=== PATIENT | female | born 1980 | race Caucasian/White ===

== ENCOUNTER → 2018-11-22 | Outpatient (CLI) | payer BC, OTHER ==
--- NOTE | 2018-11-22 17:55 | REP ---
Left hand series: Four views. History: Contusion. Findings: Four views of the left hand show overall normal mineralization. No fracture or subluxation is seen. Impression: Normal radiographs left hand. Electronically Signed by Olayinka Byrd MD 11/22/2018 05:46 P
== END ==
LOC: M ADAMS 15:56
PROVIDERS: ATTEND Physician Assistant Medical
DX: S60.222A Contusion of left hand, initial encounter (principal); W23.0XXA Caught, crushed, jammed, or pinched between moving objects, initial encounter; Y92.9 Unspecified place or not applicable

== ENCOUNTER → 2019-02-19 | Outpatient (CLI) | payer BC ==
--- NOTE | 2019-02-20 04:23 | REP ---
Clinical: Pain with recent trauma. Technique: AP, lateral, bilateral oblique views of the left ankle. Findings: Diffuse swelling primarily over the lateral malleolus consistent with inversion injury. No acute fracture or dislocation. Joint spaces and ankle mortise are intact. Impression: Swelling consistent with sprain. No acute fracture or dislocation. Electronically Signed by Chito Rodgers MD 02/20/2019 04:14 A
== END ==
LOC: M ADAMS 11:34
PROVIDERS: ATTEND Physician Assistant Medical
DX: M25.472 Effusion, left ankle (principal); M25.572 Pain in left ankle and joints of left foot

== ENCOUNTER → 2019-06-06 | Outpatient (REF) | payer OTHER | LOC: M LAB REF 16:31 | PROVIDERS: ATTEND Physician Assistant | DX: D48.5 Neoplasm of uncertain behavior of skin (principal) ==

== ENCOUNTER → 2023-01-22 | Outpatient (CLI) | payer BC, OTHER | LOC: M WHC 09:13 | PROVIDERS: ATTEND Obstetrics & Gynecology | DX: Z12.31 Encounter for screening mammogram for malignant neoplasm of breast (principal) ==

== ENCOUNTER → 2023-04-05 | Outpatient (CLI) | payer BC, OTHER ==
[2023-04-05 10:55] LABS: BASO # 0.1 10^3/uL (0.0-0.2); BASO % 0.9 % (0.0-1.0); EOS # 0.1 10^3/uL (0.0-0.5); EOS % 1.3 % (0.0-3.0); HEMATOCRIT 37.7 % (36.0-47.0); HEMOGLOBIN 12.5 g/dl (12.0-15.5); LYMPH # 1.5 10^3/uL (1.5-5.0); LYMPH % 22.5 % (24.0-44.0); MEAN CORPUSCULAR HEMOGLOBIN 30.2 pg (27.0-33.0); MEAN CORPUSCULAR HGB CONC 33.2 g/dl (32.0-36.5); MEAN CORPUSCULAR VOLUME 91.1 fl (80.0-96.0); MONO # 0.5 10^3/uL (0.0-0.8); MONO % 7.7 % (2.0-8.0); NEUTROPHILS # 4.5 10^3/uL (1.5-8.5); NEUTROPHILS % 67.2 % (36.0-66.0); PLATELET COUNT, AUTOMATED 244 10^3/uL (150-450); RED BLOOD COUNT 4.14 10^6/uL (4.00-5.40); WHITE BLOOD COUNT 6.8 10^3/uL (4.0-10.0)
[2023-04-05 11:15] LABS: ALBUMIN 3.9 G/DL (3.2-5.2); ALKALINE PHOSPHATASE 52 U/L (46-116); ALT/SGPT 15 U/L (7.0-40); AST/SGOT 11 U/L (<34); BILIRUBIN,TOTAL 0.5 MG/DL (0.3-1.2); BLOOD UREA NITROGEN 14 MG/DL (9-23); CALCIUM LEVEL 8.9 MG/DL (8.5-10.1); CARBON DIOXIDE LEVEL 29 MMOL/L (20-31); CHLORIDE LEVEL 107 MMOL/L (98-107); CHOLESTEROL LEVEL 150 MG/DL (<200); CHOLESTEROL RISK RATIO 2.86 (<5); CREATININE FOR GFR 0.82 MG/DL (0.55-1.30); GLOMERULAR FILTRATION RATE > 60.0 (>58); GLUCOSE, FASTING 83 MG/DL (60-100); HDL CHOLESTEROL 52.3 MG/DL (>40); LDL CHOLESTEROL 87.5 MG/DL (<100); NON-HDL-C 97.7 MG/DL; POTASSIUM SERUM 4.5 MMOL/L (3.5-5.1); SODIUM LEVEL 141 MMOL/L (136-145); TRIGLYCERIDES LEVEL 51 MG/DL (<150)
[2023-04-05 11:16] LABS: FREE T4 0.97 NG/DL (0.89-1.76); THYROID STIMULATING HORMONE 1.494 uIU/ML (0.55-4.78)
== END ==
LOC: M LAB 09:27
PROVIDERS: ATTEND Family Medicine
DX: Z13.220 Encounter for screening for lipoid disorders (principal); Z13.0 Encounter for screening for diseases of the blood and blood-forming organs and certain disorders involving the immune mechanism

== ENCOUNTER 2024-06-01 19:24 | Emergency (ER) | payer BC ==
[~2024-06-01] VITALS: Ht 162.6 cm; Wt 64.2 kg
[~2024-06-01 19:24] MED LIST: ACET-683 PO; CLEO300C2 PO; OSEL75CA2 PO; PROB250C PO
[2024-06-01] MEDS ORDERED: NAPR-837 PO (22:55)
[2024-06-01 22:59] VITALS: BP 114/58; TEMP 96.7; O2SAT 99
[2024-06-01] MEDS: ACETAMINOPHEN 325 MG TAB PO ONE (23:02)
[2024-06-01] MEDS: NAPROXEN 250 MG TAB PO ONE (23:02)
== END 2024-06-01 23:05 | disposition home or self-care (01) ==
LOC: M ED 19:24
DX: S43.51XA Sprain of right acromioclavicular joint, initial encounter (principal); S60.222A Contusion of left hand, initial encounter; S60.221A Contusion of right hand, initial encounter; Y92.019 Unspecified place in single-family (private) house as the place of occurrence of the external cause; Y93.9 Activity, unspecified; Y99.9 Unspecified external cause status; W19.XXXA Unspecified fall, initial encounter; Z79.1 Long term (current) use of non-steroidal anti-inflammatories (NSAID); Z79.899 Other long term (current) drug therapy; Z88.0 Allergy status to penicillin

== ENCOUNTER → 2024-07-03 | Outpatient (CLI) | payer BC ==
[~2024-07-03] MED LIST changes: +NAPR-837 PO
== END ==
LOC: M PLAIMG 08:21
PROVIDERS: ATTEND Nurse Practitioner Adult Health
DX: M79.642 Pain in left hand (principal); M25.511 Pain in right shoulder

== ENCOUNTER → 2025-02-20 | Outpatient (CLI) | payer BC | LOC: M WHC 14:32 | PROVIDERS: ATTEND Obstetrics & Gynecology | DX: Z12.31 Encounter for screening mammogram for malignant neoplasm of breast (principal) ==